=== PATIENT | male | born 1955 | race Caucasian/White ===

== ENCOUNTER 2019-07-12 07:40 | Day surgery (SDC) | payer OTHER ==
[~2019-07-12] VITALS: Ht 154.9 cm; Wt 111.1 kg
[~2019-07-12 07:40] MED LIST: BISHYD10 PO; BISOPROLOL; FURO40 PO; GLYMET5 PO; HYDACE5 PO; Hytrin1 MG PO; LOSARTAN-HCTZ1 EACH PO; NAPR500 PO; NEBI5 PO; PIOG15 PO; POTA10T PO; ROSU5 PO
--- NOTE | 2019-07-12 08:35 | NUR ---
Ambulatory in Day Surgery History, Chart, Medications and Allergies reviewed before start of procedure.Patient confirms NPO status and agrees with scheduled surgery. Patient states colon prep results clear.Lungs clear T/O to Auscultation. Patient States Post-Procedure ride home has been arranged WITH COUSIN.
--- NOTE | 2019-07-12 09:00 | NUR ---
07/12/19 0900 Marci Miller History, Chart, Medications and Allergies reviewed before start of procedure.Patient confirms NPO status and agrees with scheduled surgery. 3-LEAD EKG REVIEWED WITH PHYSICIAN PRIOR TO START OF PROCEDURE. PATIENT DETERMINED TO BE ASA APPROPRIATE FOR PROPOFOL SEDATION PRIOR TO START OF PROCEDURE BY DR. BETANCOURT. MONITOR INTACT WITH CONTINUOUS PULSE OXIMETRY AND INTERMITTENT BP.
--- NOTE | 2019-07-12 10:16 | NUR ---
Discharge instructions reviewed with patient. Patient verbalizes understanding. Copy given to patient to take home. Discharged via wheelchair to private car for ride home. PT DENIES NEEDING ANYTHING TO DRINK PRIOR TO DC HOME. DENIES PAIN.
== END 2019-07-12 10:20 | disposition home or self-care (01) ==
LOC: ORSCMMR 07:40
PROVIDERS: Internal Medicine Gastroenterology
PROC: 0DJD8ZZ Inspection of Lower Intestinal Tract, Via Natural or Artificial Opening Endoscopic (ICD-10-PCS; principal; 2019-07-12 09:00)
DX: Z12.11 Encounter for screening for malignant neoplasm of colon (principal); Z86.010 Personal history of colon polyps; I10 Essential (primary) hypertension; E78.00 Pure hypercholesterolemia, unspecified; E11.9 Type 2 diabetes mellitus without complications; E66.9 Obesity, unspecified; Z68.42 Body mass index [BMI] 45.0-49.9, adult; Z79.899 Other long term (current) drug therapy
CPT/HCPCS: 82947; J2250; J3010; J7120

== ENCOUNTER 2025-03-22 06:57 | Day surgery (SDC) | payer OTHER ==
[~2025-03-22] VITALS: Ht 154.9 cm; Wt 98.2 kg
[2025-03-22] MEDS ORDERED: Ondansetron HCl 2 MG / ML 2ML Vial IV PRN (07:55)
[2025-03-22] MEDS ORDERED: Albuterol 2.5 MG/3 ML VIAL INH PRN (07:55)
--- NOTE | 2025-03-22 08:16 | NUR ---
Ambulatory in Day Surgery History, Chart, Medications and Allergies reviewed before start of procedure. Pre-Op teaching done. Pt verbalizes understanding. Patient States Post-Procedure ride home has been arranged.
[2025-03-22 08:27] VITALS: BP 134/49
[2025-03-22] MEDS ORDERED: METO50ER PO (08:52)
[2025-03-22] MEDS ORDERED: AMLO5 PO (08:53)
[2025-03-22] MEDS ORDERED: METF500 PO (08:53)
--- NOTE | 2025-03-22 08:53 | NUR ---
03/22/25 0853 Maria Del Carmen Toribio MONITOR INTACT WITH CONTINUOUS PULSE OXIMETRY, CONTINUOUS END TITAL CO2, 3-LEAD EKG AND INTERMITTENT BLOOD PRESSURE. ALEX WALLS PROVIDING ANESTHESIA, SEE RECORDS
[2025-03-22] MEDS ORDERED: BUME1 PO (08:54)
[2025-03-22] MEDS ORDERED: Hytrin1 MG PO (08:54)
[2025-03-22 09:42] VITALS: BP 116/74
--- NOTE | 2025-03-22 09:44 | NUR ---
REPORT RECEIVED FROM JONATHAN SANTIAGO AND ALEX BRUNNER. VSS. PT ON RA. PT A&OX4. PT ABLE TO REPOSITION SELF IN BED. PT REQUESTING PO FLUIDS AND TOLERATING THEM WELL. PT DENIES PAIN, NAUSEA OR OTHER DISCOMFORTS.
[2025-03-22 09:49] VITALS: BP 114/70
--- NOTE | 2025-03-22 10:09 | NUR ---
Patient up to Ambulate independently. Gait steady. VSS AND CONSISTENT WITH PT BASELINE. PT HAS NO COMPLAINTS AND VERBALIZES READINESS TO GO HOME. Discharge instructions reviewed with patient. Patient verbalizes understanding. Copy given to patient to take home. Patient States Post-Procedure ride home has been arranged. PT LEFT IN CARE OF HIS , RESPONSIBLE ADULT. PT REFUSES WC AND WOULD LIKE TO GO TO [place] WHILE THEY WAIT FOR THEIR RIDE HOME. PT BELONGINGS RETURNED TO PT.
== END 2025-03-22 10:12 | disposition home or self-care (01) ==
LOC: ORSCMMR 06:57 → ORD 08:30 → ORSCMMR 08:30
PROVIDERS: Internal Medicine Gastroenterology
PROC: 0DB68ZX Excision of Stomach, Via Natural or Artificial Opening Endoscopic, Diagnostic (ICD-10-PCS; principal; 2025-03-22 08:30)
PROC: 0DB48ZX Excision of Esophagogastric Junction, Via Natural or Artificial Opening Endoscopic, Diagnostic (ICD-10-PCS; principal; 2025-03-22 08:30)
PROC: 0DB98ZX Excision of Duodenum, Via Natural or Artificial Opening Endoscopic, Diagnostic (ICD-10-PCS; principal; 2025-03-22 08:30)
PROC: 0DBM8ZX Excision of Descending Colon, Via Natural or Artificial Opening Endoscopic, Diagnostic (ICD-10-PCS; principal; 2025-03-22 08:30)
DX: D46.4 Refractory anemia, unspecified (principal); K29.01 Acute gastritis with bleeding; K21.9 Gastro-esophageal reflux disease without esophagitis; D12.4 Benign neoplasm of descending colon; Z86.0101 Personal history of adenomatous and serrated colon polyps; E11.9 Type 2 diabetes mellitus without complications; I10 Essential (primary) hypertension; Z79.84 Long term (current) use of oral hypoglycemic drugs; Z79.899 Other long term (current) drug therapy; E66.01 Morbid (severe) obesity due to excess calories; Z68.41 Body mass index [BMI] 40.0-44.9, adult; E78.00 Pure hypercholesterolemia, unspecified
CPT/HCPCS: 82947; 88305; 88312; 88342; J2704; J7120